=== PATIENT | female | born 1965 | race Caucasian/White ===

== ENCOUNTER 2017-10-10 09:36 | Emergency (ER) | payer OTHER | END 2017-10-10 10:55 | disposition home or self-care (01) | LOC: ER 10:55 | DX: S06.0X0A Concussion without loss of consciousness, initial encounter (principal); W11.XXXA Fall on and from ladder, initial encounter; Y93.89 Activity, other specified; Y99.0 Civilian activity done for income or pay; Y92.69 Other specified industrial and construction area as the place of occurrence of the external cause | CPT/HCPCS: 70450; 99284-25 ==